=== PATIENT | female | born 1995 | race African-American/Black ===

== ENCOUNTER 2023-11-21 11:34 | Emergency (ER) | payer SELFPAY ==
[2023-11-21] MEDS ORDERED: Ketorolac Tromethamine 30 MG (1 mL) VIAL ONE (12:29)
[2023-11-21 13:10] LABS: BHCG - Serum Negative (NEGATIVE); Pregs Control Background? CLEAR/WHITE (CLR/WHITE); Pregs Control Bar Appear? YES (CONTROL BAR)
== END 2023-11-21 13:46 | disposition home or self-care (01) ==
LOC: ERS 11:34
DX: R10.33 Periumbilical pain (principal)
CPT/HCPCS: 36415; 84703; 96372; 99283; J1885